=== PATIENT | female | born 1980 | race Caucasian/White ===

== ENCOUNTER 2018-01-09 07:17 | Emergency (ER) | payer BC, MEDICAID ==
--- NOTE | 2018-01-09 07:29 | Emergency Department Record ---
History of Present Illness - General Chief complaint: Lower Extremity Pain Stated complaint: LEG PAIN Time Seen by Provider: 01/09/18 07:23 Source: Patient Mode of Arrival: Ambulatory Limitations: No limitations - History of Present Illness Initial comments: 37 yo female presents with right leg pain that was noted this morning. She awoke with the pain. No injury. She denies fever, swelling, numbness, rash, discoloration. No history of DVT or PE. She was seen at [facility] last night and had a CTA of the chest that was negative for PE per her. She states yesterday it hurt to breath. That resolved. She states she had an elevated D-Dimer at B that lead to CTA. She is a smoker on control. Kallie is her PCP. MD Complaint: Extremity pain -: Hour(s) Location: Right History of Same: No -: Yes Myalgia Radiation: Distal Quality: Aching Consistency: Constant Improves with: Nothing Worsens with: Nothing Associated Symptoms: Denies other symptoms - Related Data Home Medications Medication Instructions Recorded Confirmed Last Taken Topiramate 25Mg Tablet [Topiramate] 25 mg PO DAILY 01/09/18 01/09/18 01/08/18 Previous Rx's Medication Instructions Recorded Cholecalciferol (Vitamin D3) 1,000 unit PO DAILY #30 capsule 02/15/15 [Vitamin D3] Allergies Allergy/AdvReac Type Severity Reaction Status Date / Time bupropion HCl Allergy Severe panic Verified 01/09/18 07:34 [From Wellbutrin] attack metronidazole [From Flagyl] Allergy Mild NAUSEA Verified 01/09/18 07:34 gabapentin [From Neurontin] Allergy Unknown PT UNSURE Verified 01/09/18 07:34 OF REACTION Review of Systems Constitutional: Denies: Chills, Fever, Malaise, Weakness Eyes: Denies: Eye discharge ENT: Denies: Congestion, Throat pain Respiratory: Denies: Cough, Dyspnea, Hemoptysis, Stridor, Wheezes Cardiovascular: Denies: Chest pain, Palpitations, Syncope Endocrine: Denies: Fatigue Gastrointestinal: Denies: Abdominal pain, Diarrhea, Nausea, Vomiting Genitourinary: Denies: Dysuria, Urgency Musculoskeletal: Denies: Arthralgia, Back pain, Joint swelling, Myalgia, Neck pain Skin: Denies: Bruising, Change in color, Rash Neurological: Denies: Headache, Numbness, Weakness Psychiatric: Denies: Anxiety Hematological/Lymphatic: Denies: Blood Clots, Easy bleeding, Easy bruising, Swollen glands Past Medical History - SOCIAL HISTORY Smoking Status: Current every day smoker Drug Use: None - RESPIRATORY Hx Respiratory Disorders: Yes Hx Dyspnea: Yes (Smoking induced per patient) - CARDIOVASCULAR Hx Cardio Disorders: No - NEURO Hx Neuro Disorders: Yes Hx Headaches: Yes (Migraines since age 11) - GI Hx GI Disorders: No - Hx Genitourinary Disorders: No - ENDOCRINE Hx Endocrine Disorders: No - MUSCULOSKELETAL Hx Musculoskeletal Disorders: No - PSYCH Hx Psych Problems: Yes Hx Anxiety: Yes - HEMATOLOGY/ONCOLOGY Hx Hematology/Oncology Disorders: No Physical Exam - General General Appearance: Alert, Oriented x3, Cooperative, No acute distress Limitations: No limitations - Head Head exam: Atraumatic, Normal inspection - Eye Eye exam: Normal appearance. negative: Conjunctival injection, Scleral icterus - ENT ENT exam: Normal exam, Mucous membranes moist Ear exam: Normal external inspection Nasal Exam: Normal inspection Mouth exam: Normal external inspection - Neck Neck exam: Normal inspection - Respiratory Respiratory exam: Normal lung sounds bilaterally. negative: Respiratory distress - Cardiovascular Cardiovascular Exam: Regular rate, Normal rhythm, Normal heart sounds Peripheral Pulses: 2+: Dorsalis Pedis (R) - Rectal Rectal exam: Deferred - exam: Deferred - Extremities Extremities exam: Normal inspection, Calf tenderness, Normal capillary refill, Tenderness. negative: Full ROM, Joint swelling, Pedal edema - Back Back exam: Reports: Normal inspection - Neurological Neurological exam: Alert, Normal gait, Oriented X3 - Psychiatric Psychiatric exam: Normal affect, Normal mood - Skin Skin exam: Dry, Intact, Normal color, Warm Course - Reevaluation(s) Reevaluation #1: 01/09/18 08:45 The venous doppler is negative for DVT DC to follow up with her PCP and return as needed Disposition Disposition: Discharge Clinical Impression: Leg pain, right Disposition: Home, Self-Care Condition: (1) Good Instructions: Leg Pain (ED) Additional Instructions: Call Dr Arreguin for close follow up Return or be seen if you have redness, fever, swelling or the leg or any new concerns. Forms: Patient Portal Access Time of Disposition: 08:46 Quality - Quality Measures Quality Measures: N/A - Blood Pressure Screening Does Patient Have Any of the Following: No Blood Pressure Classification: Pre-Hypertensive BP Reading Systolic Measurement: 121 Diastolic Measurement: 81 Screening for High Blood Pressure: < Pre-Hypertensive BP, F/U Documented > [ G8950] Pre-Hypertensive Follow-up Interventions: Referral to alternative/primary care provider.
--- NOTE | 2018-01-10 14:47 | US VENOUS DOPPLER REPORT ---
EXAM: ULTRASOUND VENOUS DOPPLER LOWER EXT RT HISTORY: RIGHT LEG PAIN STARTING THIS MORNING, POSSIBLE DVT. TECHNIQUE: Venous Doppler ultrasound of the right lower extremity was performed utilizing color-flow and spectral analysis. Compression and flow augmentation maneuvers were utilized in the thigh and popliteal region as well. COMPARISON: No prior venous Doppler ultrasound with which to compare. FINDINGS: The venous Doppler ultrasound of the right lower extremity is negative. Flow was seen throughout. No DVT evident. Compression and flow augmentation evident in the right thigh and popliteal region as well. IMPRESSION: NEGATIVE VENOUS DOPPLER ULTRASOUND OF THE RIGHT LOWER EXTREMITY WITH NO DVT IDENTIFIED. JOB NUMBER: [id number] [facility]
== END 2018-01-09 08:52 | disposition home or self-care (01) ==
LOC: ER 07:17
DX: M79.661 Pain in right lower leg (principal); F17.210 Nicotine dependence, cigarettes, uncomplicated
CPT/HCPCS: 99283

== ENCOUNTER 2019-03-11 15:43 | Emergency (ER) | payer SELFPAY ==
--- NOTE | 2019-03-11 16:11 | Emergency Department Record ---
Anxiety - General Chief Complaint: Anxiety Stated Complaint: SOB,PANIC ATTACK Time Seen by Provider: 03/11/19 15:48 Source: Patient Mode of Arrival: Ambulatory Limitations: No limitations - History of Present Illness Initial Comments: The patient is here due to having what she states is an anxiety attack a half hour prior to presenting here. She did take a 5 hour energy drink an hour prior and was driving home and became very anxious, flushed and then had palpitations. She had no CP or SOB but was a little shakey. The patient states she then went home and took a Xanax and by the time she got here to [facility] the symptoms were gone. The patient has had a long hx of similar problems with anxiety and has had increased stressors at home recently. She has no cardiac hx and no hx of any CP with exertion. Presently she feels 100% better and is resting comfortably. Complaint: Anxiety Onset/Timin -: Minutes(s) Previous History of Same: Yes - Related Data Home Medications: Previous Rx's Medication Instructions Recorded Cholecalciferol (Vitamin D3) 1,000 unit PO DAILY #30 capsule 02/15/15 [Vitamin D3] Allergies/Adverse Reactions: Allergies Allergy/AdvReac Type Severity Reaction Status Date / Time bupropion HCl Allergy Severe panic Verified 03/11/19 15:58 [From Wellbutrin] attack metronidazole [From Flagyl] Allergy Mild NAUSEA Verified 03/11/19 15:58 gabapentin [From Neurontin] Allergy Unknown PT UNSURE Verified 03/11/19 15:58 OF REACTION Travel Screening - Travel/Exposure Within Last 30 Days Have you traveled within the last 30 days?: No - Travel/Exposure Within Last Year Have you traveled outside the [place] in the last year?: No - Additonal Travel Details Have you been exposed to anyone with a communicable illness?: No - Travel Symptoms Symptom Screening: None Review of Systems Constitutional: Denies: Chills, Fever Eyes: Denies: Eye discharge ENT: Denies: Congestion Respiratory: Denies: Cough, Dyspnea Cardiovascular: Denies: Chest pain, Dyspnea on exertion Endocrine: Denies: Fatigue Gastrointestinal: Denies: Nausea Genitourinary: Denies: Dysuria Musculoskeletal: Denies: Arthralgia Neurological: Denies: Abnormal gait Psychiatric: Reports: Anxiety Past Medical History - SOCIAL HISTORY Smoking Status: Current every day smoker Alcohol Use: None Drug Use: None - RESPIRATORY Hx Respiratory Disorders: Yes Hx Dyspnea: Yes (Smoking induced per patient) - CARDIOVASCULAR Hx Cardio Disorders: Yes Hx Palpitations: Yes - NEURO Hx Neuro Disorders: Yes Hx Headaches: Yes (Migraines since age 11) - GI Hx GI Disorders: No Hx Ulcer: Yes - Hx Genitourinary Disorders: No - ENDOCRINE Hx Endocrine Disorders: No - MUSCULOSKELETAL Hx Musculoskeletal Disorders: No - PSYCH Hx Psych Problems: Yes Hx Anxiety: Yes - HEMATOLOGY/ONCOLOGY Hx Hematology/Oncology Disorders: No Family Medical History Any Significant Family History?: No Physical Exam - General General Appearance: Alert, Oriented x3, Cooperative, No acute distress - Head Head exam: Atraumatic, Normocephalic, Normal inspection - Eye Eye exam: Normal appearance, PERRL, EOMI - ENT Throat exam: Normal inspection. negative: Tonsillar erythema, Tonsillar exudate - Neck Neck exam: Normal inspection, Full ROM. negative: Tenderness - Respiratory Respiratory exam: Normal lung sounds bilaterally. negative: Respiratory distress - Cardiovascular Cardiovascular Exam: Regular rate, Normal rhythm, Normal heart sounds. negative: Diastolic murmur, Systolic murmur - GI/Abdominal GI/Abdominal exam: Soft, Normal bowel sounds. negative: Tenderness - Extremities Extremities exam: Normal inspection, Full ROM, Normal capillary refill. negative: Tenderness - Back Back exam: Reports: Normal inspection - Neurological Neurological exam: Alert, Normal gait, Oriented X3. negative: Abnormal gait, Altered, Motor sensory deficit - Psychiatric Psychiatric exam: negative: Anxious - Skin Skin exam: negative: Rash Course Vital Signs 03/11/19 15:48 Temperature 98.0 F Pulse Rate 86 Respiratory 18 Rate Blood Pressure 118/78 Pulse Ox 100 - Reevaluation(s) Reevaluation #1: The patient is doing very well at this time. She remains symptoms free and feels comfortable going home. She is to see her PCP next week for recheck if needed and to return to the ER for any return of any symptoms. 03/11/19 16:41 Reevaluation #2: The patient is doing very well at this time. She has no CP or SOB and is low risk Wells criteria and PERC neg so I strongly doubt any pulmonary pathology as to the cause of her symptoms. 03/11/19 16:43 Medical Decision Making - Data Complexity MDM Data: Labs Ordered and/or Reviewed, EKG Ordered and/or Reviewed - Lab Data Result diagrams: 03/11/19 16:11 03/11/19 16:11 - EKG Data -: EKG Interpreted by Me EKG: No Acute Changes, Normal EKG Disposition Disposition: Discharge Clinical Impression: Anxiety Disposition: Home, Self-Care Condition: (2) Stable Instructions: Social Anxiety Disorder (ED) Additional Instructions: Please continue your regular medicines and use the Xanax if needed. Please see your family doctor next week if needed and return to the ER for any return of any symptoms. Forms: Patient Portal Access Time of Disposition: 16:43 Quality - Quality Measures Quality Measures: N/A - Blood Pressure Screening View Details: Yes Does Patient Have Any of the Following: No Blood Pressure Classification: Normal BP Reading Systolic Measurement: 118 Diastolic Measurement: 78 Screening for High Blood Pressure: < Normal BP, F/U Not Required > [G8783]
[2019-03-11 16:15] LABS: ABSOLUTE NEUTROPHIL COUNT 7.26; BASO % 0.2 % (0-6); EOS % 0.9 % (0-6); GRAN % 67.5 % (47-80); HEMATOCRIT 39.1 % (35.0-47.0); HEMOGLOBIN 13.5 gm/dl (11.6-16.0); LYMPH % 25.4 % (16-45); MEAN CELL VOLUME 95.4 fl (81-97); MEAN CORPUSCULAR HEMOGLOBIN 32.9 pg (27-33); MEAN CORPUSCULAR HGB CONC 34.5 g/dl (32-36); MEAN PLATELET VOLUME 10.6 fl (7.4-10.4); PLATELET COUNT 245 K/uL (130-400); RED CELL DISTRIBUTION WIDTH 12.5 % (11.5-14.5); WHITE BLOOD COUNT W/O DIFF 10.8 K/uL (4.2-12.2)
[2019-03-11 16:25] LABS: BLOOD UREA NITROGEN 10 mg/dL (6-20); CREATININE 0.8 mg/dL (0.5-0.9); EST GLOMERULAR FILTRATION RATE > 60 mL/min
[2019-03-11 16:26] LABS: TOTAL PROTEIN 6.6 g/dL (6.6-8.7)
[2019-03-11 16:28] LABS: GLUCOSE,RANDOM 143 mg/dL (74-109)
[2019-03-11 16:31] LABS: ALB/GLOB RATIO 1.9 (1.1-1.8); ALBUMIN 4.3 g/dL (4.0-5.0); ALKALINE PHOSPHATASE 88 U/L (35-104); ALT/SGPT 14 U/L (<33); AST/SGOT 19 U/L (10.0-35.0)
== END 2019-03-11 16:47 | disposition home or self-care (01) ==
LOC: ER 15:43
DX: F41.0 Panic disorder [episodic paroxysmal anxiety] (principal); R06.02 Shortness of breath; R00.2 Palpitations; F17.210 Nicotine dependence, cigarettes, uncomplicated
CPT/HCPCS: 80053; 85025; 93005; 93010; 99284